=== PATIENT | female | born 1975 | race Caucasian/White ===

== ENCOUNTER 2020-10-25 20:16 | Emergency (ER) | payer OTHER, SELFPAY ==
--- NOTE | ~2020-10-25 | CT_ITS ---
EXAMINATION: CT abdomen pelvis wo con DATE: 10/25/2020 23:22 INDICATION: Left flank pain TECHNIQUE: Computed tomography (CT) of the abdomen and pelvis was performed without intravenous contr ast. Automated exposure control and iterative reconstruction technique were employed. The dose-length product was 545.01 mGy-cm. COMPARISON: None FINDINGS: Lung bases are clear. Heart size is normal. No pericardial or pleural effusion. Indeterminate 3.8 cm and 1.6 cm hypodense hepatic lesions. Gallbladder, spleen, pancreas and bilateral adrenal glands are normal. 3-4 mm obstructing stone at the distal left ureter located approximately 1 cm from the ureter ovesicular junction resulting in mild left hydroureteronephrosis. There are at least three, 1 mm nono bstructing stones at the right kidney. No right-sided ureteral stones or hydronephrosis. There are fe w sigmoid diverticula without adjacent inflammatory change to suggest diverticulitis. No bowel obstru ction. The appendix is not visualized. No pericecal inflammatory change to suggest acute appendicitis . Bladder, anteverted uterus and bilateral adnexa are unremarkable. No free intraperitoneal gas or fl uid. No pathologically enlarged abdominal or pelvic lymphadenopathy. Bones are unremarkable. IMPRESSION: 1. Bilateral nephrolithiasis with obstructing 3 to 4 mm distal left ureteral stone resulting in mild left hydroureteronephrosis. 2. A couple indeterminate hypodense hepatic lesions, the largest measuring up to 3.8 cm which are sta tistically most likely to represent hemangiomas. Differential includes focal nodular hyperplasia, bryant noma or less likely malignancy either primary or metastatic. Recommend further evaluation with noneme rgent pre and postcontrast MRI. Reviewed, dictated and finalized at location A. IMPRESSION: 1. Bilateral nephrolithiasis with obstructing 3 to 4 mm distal left ureteral st one resulting in mild left hydroureteronephrosis. 2. A couple indeterminate hypodense hepatic lesions, the largest measuring up t o 3.8 cm which are statistically most likely to represent hemangiomas. Differen tial includes focal nodular hyperplasia, adenoma or less likely malignancy eith er primary or metastatic. Recommend further evaluation with nonemergent pre and postcontrast MRI.
[2020-10-25 20:18] VITALS: BP 144/101; PULSE 100; RESP 18; TEMP 36.4; O2SAT 100
[2020-10-25 20:42] LABS: Alanine Aminotransferase 16 U/L (4-35); Albumin Level 4.7 g/dL (3.5-5.1); Alkaline Phosphatase 75 U/L (38-126); Anion Gap 9 mmol/L (8-16); Aspartate Amino Transferase 23 U/L (14-36); Bilirubin,Total 0.3 mg/dL (0.2-1.3); Blood Urea Nitrogen 14 mg/dL (7-17); Calcium 9.9 mg/dL (8.4-10.2); Carbon Dioxide 26 mmol/L (22-30); Chloride 103 mmol/L (98-107); Estimated CRCL calculation 60 ml/min; Estimated Glomerular Filt Rate > 60; Glucose 90 mg/dL (65-105); Lipase 102 U/L (23-300); Potassium 4.1 mmol/L (3.4-5.0); Sodium 138 mmol/L (137-145)
[2020-10-25 20:46] LABS: Add Urine Microscopic? YES; Appearance Urine Cloudy (Clear); Bilirubin Urine Negative (Negative); Blood Urine 2+ (Negative); Color Urine Yellow (Yellow); Glucose Urine UA Negative (Negative); Ketones Urine Negative (Negative); Leukocyte Esterase Ur Negative LEU/UL (Negative); Mucus Urine Rare /lpf; Nitrate Urine Negative (Negative); Protein Urine Negative (Negative); RBC Urine 51-75 /hpf (0-2); Specific Grav Ur 1.017 (1.001-1.035); Squamous Epithelial Cell Urine Few /hpf (Few); Urobilinogen Urine Negative mg/dL (<2.0)
[2020-10-25] MEDS: MORPHINE SULFATE (*CRX) 4 MG/ML INJ IV PUSH (22:55)
[2020-10-25] MEDS: ONDANSETRON INJ 4 MG/2 ML VIAL IV PUSH (22:55)
[2020-10-25] MEDS: SODIUM CHLORIDE 0.9% IV 1,000 ML 999 ML IV CONT (23:03)
[2020-10-25 23:26] VITALS: BP 145/85; PULSE 85; RESP 20; O2SAT 96
[2020-10-26 00:11] LABS: Basophils Absolute Auto 0.1 K/mm3 (0.0-0.1); Basophils Percent Auto 0.5 % (0.2-1.2); Eosinophils Absolute Auto 0.4 K/mm3 (0-0.3); Eosinophils Percent Auto 4.1 % (0-4.4); Hematocrit 36.3 % (37.0-47.0); Hemoglobin 12.1 g/dL (12.0-15.0); Immature Granulocyte Absolute 0.02 K/mm3 (0.00-0.031); Immature Granulocyte Percent A 0.2 % (0-0.5); Lymphocytes Absolute Auto 1.78 K/mm3 (0.9-3.2); Mean Corpuscular HGB Conc 33.3 g/dl (32-36); Mean Corpuscular Hemoglobin 28.6 pg (26-34); Mean Corpuscular Volume 85.8 fl (80-100); Monocytes Absolute Auto 0.8 K/mm3 (0.1-0.6); Neutrophils Absolute Auto 6.4 K/mm3 (1.3-6.7); Neutrophils Percent Auto 68.2 % (45.5-73.1); Platelet Count Result 240 k/mm3 (150-375); Red Blood Count 4.23 M/mm3 (4.2-5.4); White Blood Count 9.4 K/mm3 (4.5-10.0)
[2020-10-26 00:27] VITALS: BP 148/74; PULSE 84; RESP 20; O2SAT 97
--- NOTE | 2020-10-26 00:43 | ED.GENADULT ---
HPI - General Adult General Chief complaint: Abdominal Pain Stated complaint: lower abd pain Time Seen by Provider: 10/25/20 22:26 History of Present Illness HPI narrative: Patient is a 45-year-old female who presents the emergency department with chief complaint of flank pain and abdominal pain. The patient states she had sudden onset severe pain in the left flank. The patient states that sharp states is not improved by anything reports is not able to get comfortable in any position. Related Data Allergies Allergy/AdvReac Type Severity Reaction Status Date / Time Sulfa (Sulfonamide Allergy Severe Anaphylactic Verified 10/25/20 20:21 Antibiotics) Shock milk Allergy Mild Gas and Verified 10/25/20 20:21 Bloating Honey Bee Allergy Severe Anaphylactic Uncoded 10/25/20 20:21 Shock Wasp Allergy Severe Anaphylactic Uncoded 10/25/20 20:21 Shock Review of Systems Review of Systems: Narrative: A 10 system review of systems was completed on the patient and is negative except for what is stated in the HPI. Nursing and ancillary documentation was reviewed. [facility] Past Medical History Medical History Anaphylaxis Rotator cuff tendinitis Family History Family History Mother Carcinoma of colon, Onset Age: 53 Social History Social History Social History: Engaged Smoking status: Never smoker Tobacco type: cigarettes Second hand tobacco smoke exposure: No Smoking end date: 07/02/95 Alcohol intake: current Drinks per week: 2 Substance use: never Substance use type: does not use Gender identity (if verbalized by the patient): Female Exam Narrative: Exam Narrative: GENERAL: Well-appearing, well-nourished, and in moderate acute pain distress. HEAD: Normocephalic, atraumatic. EYES: PERRLA and EOMI. ENT: Nares clear, no rhinorrhea or epistaxis. Mucous membranes moist. NECK: Supple. CHEST: Clear to auscultation. No respiratory distress. HEART: Regular rate and rhythm. No murmur heard. Normal peripheral pulses. ABDOMEN: Soft, nontender, nondistended, normal active bowel sounds. EXTREMITIES: Normal range of motion. No edema. SKIN: Warm, dry, no rash. NEURO: No focal deficits. Alert and oriented x3. PSYCH: Normal mood and affect. Course Course Emergency Course: CT scan shows evidence of 4 mm stone Vital Signs Vital signs: Vital Signs Temperature 36.4 C 10/25/20 20:18 Pulse Rate 100 10/25/20 20:18 Respiratory Rate 18 10/25/20 20:18 Blood Pressure 144/101 H 10/25/20 20:18 Pulse Oximetry 100 10/25/20 20:18 Temperature 36.4 C 10/25/20 20:18 Pulse Rate 84 10/26/20 00:27 Respiratory Rate 20 10/26/20 00:27 Blood Pressure 148/74 H 10/26/20 00:27 Pulse Oximetry 97 10/26/20 00:27 Medical Decision Making Vital Signs Vital Signs: Vital Signs Temperature 36.4 C 10/25/20 20:18 Pulse Rate 100 10/25/20 20:18 Respiratory Rate 18 10/25/20 20:18 Blood Pressure 144/101 H 10/25/20 20:18 Pulse Oximetry 100 10/25/20 20:18 Temperature 36.4 C 10/25/20 20:18 Pulse Rate 84 10/26/20 00:27 Respiratory Rate 20 10/26/20 00:27 Blood Pressure 148/74 H 10/26/20 00:27 Pulse Oximetry 97 10/26/20 00:27 Lab Data Result diagrams: 10/26/20 00:03 10/25/20 20:27 Labs: Lab Results 10/25/20 10/25/20 10/26/20 Range/Units 20:27 20:32 00:03 WBC 9.4 (4.5-10.0) K/mm3 RBC 4.23 (4.2-5.4) M/mm3 Hgb 12.1 (12.0-15.0) g/dL Hct 36.3 L (37.0-47.0) % MCV 85.8 (80-100) fl MCH 28.6 (26-34) pg MCHC 33.3 (32-36) g/dl RDW 13.0 (11.5-14.5) % Plt Count 240 (150-375) k/mm3 MPV 10.0 (7.4-10.4) fl Immature Gran % (Auto) 0.2 (0-0.5) % Neut % (Auto) 68.2 (45.5-73.1) % Lymph
== END 2020-10-26 01:34 | disposition home or self-care (01) ==
PROVIDERS: Emergency Medicine; Emergency Provider Emergency Medicine; PCP Family Medicine
DX: N13.2 Hydronephrosis with renal and ureteral calculous obstruction (principal); K76.9 Liver disease, unspecified
CPT/HCPCS: 36415; 74176; 80053; 81001; 81025; 83690; 85025; 96360; 96361; 96374; 96375; 99284; J2270; J2405; J7030

== ENCOUNTER 2020-10-26 15:25 | Observation (INO) | payer OTHER, SELFPAY ==
--- NOTE | ~2020-10-26 | XR_ITS ---
EXAMINATION: XR retrograde pyelo w/stent LT DATE: 10/27/2020 14:39 INDICATION: Left ureteral stent placement TECHNIQUE: Fluoroscopic images from a left ureteral stent placement are submitted for review. 27 seco nds of fluoroscopy time. 30 fluoroscopic images. FINDINGS: There is a left double-J internal ureteral stent projecting in expected position, with proximal Demorest loop at the level of the renal pelvis and distal loop in the pelvis within the bladder lumen. IMPRESSION: 1. Left internal ureteral stent placement. Please refer to real-time procedural findings for detail s. Reviewed, dictated and finalized at location B. IMPRESSION: 1. Left internal ureteral stent placement. Please refer to real-time procedur al findings for details.
--- NOTE | ~2020-10-26 | XR_ITS ---
XR abdomen/kub 1V 10/28/2020 08:56 INDICATION: Renal stones TECHNIQUE: KUB COMPARISON: CT dated 10/25/2020 FINDINGS: Bowel gas pattern is normal. There is no evidence of free air, mass, organomegaly, ascites or obstruction. No abnormal calculi are seen. The bones appear intact. There is a left internal ur eteral stent in expected position. There are pelvic phleboliths. IMPRESSION: 1: No acute abdominal abnormality identified. Reviewed, dictated and finalized at location B.
[2020-10-26 15:33] VITALS: BP 145/90; PULSE 84; RESP 17; TEMP 36.3; O2SAT 100
--- NOTE | 2020-10-26 16:39 | ED.FEMALEGU ---
HPI - Female Genitourinary General Chief complaint: Urogenital-Female Stated complaint: flank pain Time Seen by Provider: 10/26/20 16:31 Source: patient and family Mode of arrival: ambulatory Limitations: no limitations History of Present Illness HPI Narrative: Patient is 45 years old white female presents with left flank and left lower abdominal pain started yesterday. Patient got discharged from our emergency room last night with a diagnosis of ureterolithiasis, left distal ureter, 3 to 4 mm. Patient woke up this morning and started having similar symptoms as yesterday, gradually getting worse associated with nausea and frequent vomiting. Patient reports no position is comfortable. Patient denies any fever or chills. Related Data Allergies Allergy/AdvReac Type Severity Reaction Status Date / Time bee venom protein (honey bee) Allergy Severe Anaphylactic Verified 10/26/20 17:45 Shock Sulfa (Sulfonamide Allergy Severe Anaphylactic Verified 10/26/20 16:25 Antibiotics) Shock milk Allergy Mild Gas and Verified 10/26/20 16:25 Bloating Honey Bee Allergy Severe Anaphylactic Uncoded 10/26/20 16:25 Shock Wasp Allergy Severe Anaphylactic Uncoded 10/26/20 16:25 Shock Review of Systems Review of Systems: Narrative: CONSTITUTIONAL: Denies fever, chills, or sweats. EYES: Denies visual changes, redness, or discharge. ENT: Denies rhinorrhea, congestion, sore throat, or otalgia. CARDIOVASCULAR: Denies chest pain, palpitations, or edema. RESPIRATORY: Denies cough or dyspnea. GASTROINTESTINAL: Denies abdominal pain, nausea, vomiting, or diarrhea. GENITOURINARY: Denies dysuria or hematuria. SKIN: Denies rash or itching. MUSCULOSKELETAL: Denies back pain, joint pain, or myalgia. NEUROLOGIC: Denies headache, numbness, or weakness. PSYCHIATRIC: Denies anxiety or depression. [facility] Past Medical History Medical History Anaphylaxis Rotator cuff tendinitis Family History Family History Mother Carcinoma of colon, Onset Age: 53 Social History Social History Social History: Engaged Smoking status: Never smoker Tobacco type: cigarettes Second hand tobacco smoke exposure: No Smoking end date: 07/02/95 Alcohol intake: current Drinks per week: 2 Substance use: never Substance use type: does not use Gender identity (if verbalized by the patient): Female Exam Narrative: Exam Narrative: General appearance: Well-developed, well-nourished, restless, in pain Skin: Normal color Chest and respiratory: Airway patent, no respiratory distress, no accessory muscle use Heart: Regular rate/rhythm Abdomen: Mild tenderness left lower quadrant and left flank area Vascular: Normal peripheral pulses, normal capillary refill. Musculoskeletal: Normal range of motion, nontender back Neurologic: Alert and oriented ?3, Course Course Emergency Course: Stable, improving Consultations Consultation #1: Dr. Real Admit patient to hospitalist, n.p.o. after midnight Date: 10/26/20 Time: 18:31 Vital Signs Vital signs: Vital Signs Temperature 36.3 C L 10/26/20 15:33 Pulse Rate 84 10/26/20 15:33 Respiratory Rate 17 10/26/20 15:33 Blood Pressure 145/90 H 10/26/20 15:33 Pulse Oximetry 100 10/26/20 15:33 Temperature 36.3 C L 10/26/20 15:33 Pulse Rate 76 10/26/20 17:54 Respiratory Rate 21 H 10/26/20 17:54 Blood Pressure 161/83 H 10/26/20 17:54 Pulse Oximetry 100 10/26/20 17:54 MDM - Female Genitourinary MDM Narrative Medical decision edy
[2020-10-26 17:54] VITALS: BP 161/83; PULSE 76; RESP 21; O2SAT 100
[2020-10-26] MEDS: HYDROmorphone HCL INJ (*CRX) 1 MG/ML SYR 0.5 MG IV PUSH (17:54)
[2020-10-26] MEDS: ONDANSETRON INJ 4 MG/2 ML VIAL IV PUSH (17:54)
[2020-10-26] MEDS: SODIUM CHLORIDE 0.9% IV 1,000 ML 999 ML IV CONT (17:54)
[2020-10-26] MEDS: KETOROLAC 30 MG/ML VIAL (*BKC) IV PUSH ×2 (18:14→21:05)
[2020-10-26 18:28] LABS: Basophils Absolute Auto 0.1 K/mm3 (0.0-0.1); Basophils Percent Auto 0.5 % (0.2-1.2); Eosinophils Percent Auto 0.2 % (0-4.4); Hematocrit 39.6 % (37.0-47.0); Hemoglobin 13.5 g/dL (12.0-15.0); Immature Granulocyte Absolute 0.05 K/mm3 (0.00-0.031); Immature Granulocyte Percent A 0.4 % (0-0.5); Lymphocytes Absolute Auto 0.58 K/mm3 (0.9-3.2); Lymphocytes Percent Auto 4.4 % (18.3-44.2); Mean Corpuscular HGB Conc 34.1 g/dl (32-36); Mean Corpuscular Hemoglobin 29.1 pg (26-34); Mean Corpuscular Volume 85.3 fl (80-100); Monocytes Absolute Auto 0.5 K/mm3 (0.1-0.6); Monocytes Percent Auto 3.6 % (2.6-8.5); Neutrophils Absolute Auto 12.1 K/mm3 (1.3-6.7); Neutrophils Percent Auto 90.9 % (45.5-73.1); Platelet Count Result 240 k/mm3 (150-375); Red Blood Count 4.64 M/mm3 (4.2-5.4); Red Cell Distribution Width 13.2 % (11.5-14.5); White Blood Count 13.3 K/mm3 (4.5-10.0)
[2020-10-26 18:35] VITALS: BP 137/73; PULSE 84; RESP 18; O2SAT 97
[2020-10-26 19:20] VITALS: BP 138/77; PULSE 100; RESP 16; O2SAT 100
[2020-10-26 19:30] VITALS: BP 150/92; PULSE 110; RESP 16; TEMP 36.3; O2SAT 98; BMI 29.2
--- NOTE | 2020-10-26 20:04 | ADMGEN ---
This patient, Adarsh Alcantar, was admitted to [facility] Surg Room 313-01. Patient/family oriented to hospital policies and general routines including ID bracelet, bed and alarms, visiting hours, pain management, procedures, bathroom and other care routines, personal items, smoking policy, room service/diet, and visiting hours. Information on how to activate the Rapid Response Team has been discussed. Patient/Family are encouraged to report perceived risks to care and to ask questions if they do not understand what they are told or what they should do.
[2020-10-26 20:27] LABS: Alanine Aminotransferase 14 U/L (4-35); Albumin Level 3.9 g/dL (3.5-5.1); Alkaline Phosphatase 69 U/L (38-126); Anion Gap 5 mmol/L (8-16); Aspartate Amino Transferase 23 U/L (14-36); Bilirubin,Total 0.4 mg/dL (0.2-1.3); Blood Urea Nitrogen 14 mg/dL (7-17); Calcium 8.5 mg/dL (8.4-10.2); Carbon Dioxide 24 mmol/L (22-30); Chloride 108 mmol/L (98-107); Estimated CRCL calculation 57 ml/min; Estimated Glomerular Filt Rate 59; Glucose 157 mg/dL (65-105); Sodium 137 mmol/L (137-145)
[2020-10-26] MEDS: SODIUM CHLORIDE 0.9% IV 1,000 ML 125 ML IV CONT (20:53)
[2020-10-27] VITALS (14 sets, daily range): BP systolic 120–148; BP diastolic 72–92; PULSE 70–98; RESP 12–18; TEMP 36.3–36.6; O2SAT 94–100
[2020-10-27] MEDS: HYDROmorphone HCL INJ (*CRX) 1 MG/ML SYR 0.5 MG IV PUSH ×2 (01:52→09:44)
[2020-10-27] MEDS: KETOROLAC 30 MG/ML VIAL (*BKC) IV PUSH ×3 (06:30→20:04)
--- NOTE | 2020-10-27 07:43 | PM.IMHP ---
H&P: HPI History of Present Illness Date/Time: 10/27/20 07:43 Chief Complaint: Left flank pain Narrative: This is a 45-year-old female with no significant past medical history that presented to the emergency room due to left flank pain with radiation on down to the groin area nausea and vomiting, patient had been seen in the day before in the emergency room she was found to have a left ureter stone 3-4 mm she was triaged in the emergency room and when she was comfortable she was sent home on medication patient returned later due to being unable to tolerate anything intractable nausea and vomiting and worsening pain. She denies any fevers rigors or chills no hematuria but dark urine, patient states that she has been in her usual state of health prior to these she has never had anything like this before. Preliminary workup was significant for CT of abdomen and pelvis with left ureter 3-4 mm stone. Review of Systems Review of Systems: Narrative: Patient presented to the emergency room due to left flank pain to with radiation to the left groin area Constitutional: Comments: No fevers no rigors no chills Eyes: Comments: No vision changes ENT: Comments: No earache no nose congestion no sore throat no dry mouth Cardiovascular: Comments: No chest pain no PND no orthopnea no leg swelling Respiratory: Comments: No shortness of breath no cough no sputum production Gastrointestinal: Comments: Nausea and vomiting Genitourinary: Comments: Left flank pain with radiation to the left groin Musculoskeletal: Comments: No joint or muscle pain Integumentary/Breasts: Comments: No rashes Neurologic: Comments: No sensorimotor deficit Endocrine: Comments: No heat or cold intolerance no polydipsia polyphasia polyuria Hematologic/Lymphatic: Comments: No lymphadenopathies PMFSH Past Medical History Medical History (Updated 10/27/20 @ 13:50 by Felipa Blankenship MD) Anaphylaxis Renal stones Rotator cuff tendinitis Family History Family History Mother Carcinoma of colon, Onset Age: 53 Father Myocardial infarction Pacemaker COPD (chronic obstructive pulmonary disease) Sibling Hypertension Cyst of kidney, acquired Social History Social History Social History: Engaged Smoking status: Former smoker Tobacco type: cigarettes Second hand tobacco smoke exposure: No Smoking end date: 07/02/95 Alcohol intake: current Drinks per week: 4 Substance use: never Substance use type: does not use Gender identity (if verbalized by the patient): Female Spiritual care concerns: No Meds Home Medications and Allergies Home Medications Medication Instructions Recorded Confirmed Type cetirizine [Zyrtec] 10 mg PO DAILY PRN 10/26/20 10/26/20 History fluticasone propionate [Flonase 2 spray INTRANASAL DAILY PRN 10/26/20 10/26/20 History Allergy Relief] hydrocodone-acetaminophen 1 tablet PO Q6H PRN 3 Days #12 10/26/20 10/26/20 Rx tablet ondansetron 4 mg PO Q8H PRN #10 tablet 10/26/20 10/26/20 Rx tamsulosin [Flomax] 0.4 mg PO DAILY #10 cap 10/26/20 10/26/20 Rx Allergies Allergy/AdvReac Type Severity Reaction Status Date / Time bee venom protein (honey bee) Allergy Severe Anaphylactic Verified 10/26/20 17:45 Shock Sulfa (Sulfonamide Allergy Severe Anaphylactic Verified 10/26/20 16:25 Antibiotics) Shock milk Allergy Mild Gas and Verified 10/26/20 16:25 Bloating Honey Bee Allergy Severe Anaphylactic Uncoded 10/26/20 16:25 Shock Wasp Allergy Severe Anaphylactic Uncoded 10/26/20 16:25 Shock Vital Signs Vital Signs - 24 hr 10/26/20 15:33 10/26/20 17:54 10/26/20 18:35 Temperature 97.4 F L Pulse Rate 84 76 84 Respiratory Rate 17 21 H 18 Blood Pressure 145/90 H 161/83 H 137/73 Pulse Oximetry 100 100 97 10/26/20 19:20 10/26/20 19:30 10/27/20 04:0
--- NOTE | 2020-10-27 12:07 | WPDURCON ---
Assessment and Plan Assessment and plan (1) Ureterolithiasis: Code(s): N20.1 - Calculus of ureter Status: Acute Assessment and Plan: Obtain Consent for Dr. Real: Cystoscopy, left ureteroscopy with stone extraction, possible left stent placement, left retrograde pyelogram, possible holmium laser. Patient will go to the OR around 5:30 for surgery. Keep NPO. (2) Bilateral renal stones: Code(s): N20.0 - Calculus of kidney Status: Acute Assessment and Plan: Obtain KUB for surgical planning. Urology Consult Note HPI Date Seen: 10/27/20 Requesting Physician: Felipa Blankenship MD Primary Care Provider: Ita Tejeda MD Consult Narrative Narrative: Adarsh Alcantar is a 45 year old female who initially presented to the ER late on 10/25/2020 for LLQ pain that radiated to the left flank, nausea, vomiting and dark urine. SHe was diagnosed with a 3-4mm distal left stone via CT scan abdomen/pelvis, which also revealed bilateral non obstructive stones. She was discharged home with pain medication and FLomax only to return the next evening with worsening symptoms. She was admitted for pain control, but is not tolerating the pain well on pain medication. She has not passed the stone and is straining her urine. She denies dysuria or gross hematuria and is afebrile. She doesn't have any history of previous stones or UTI's. Her UA did not appear to show infection but did have microhematuria present and some trace bacteria. Her WBC is slightly high at 13.3 and creatinine is normal at 1.00. Review of Systems Cardiovascular: Cardiovascular: Denies chest pain Respiratory: Respiratory: Reports no additional respiratory complaints Gastrointestinal: Gastrointestinal: Reports abdominal pain, Reports nausea and Reports vomiting Genitourinary: Genitourinary: Denies hematuria, Denies nocturia, Denies dysuria, Denies pelvic pain, Reports flank pain and Reports urinary urgency PMF Past Medical History Medical History Anaphylaxis Rotator cuff tendinitis Family History Family History Mother Carcinoma of colon, Onset Age: 53 Father Myocardial infarction Pacemaker COPD (chronic obstructive pulmonary disease) Sibling Hypertension Cyst of kidney, acquired Social History Social History Social History: Engaged Smoking status: Former smoker Tobacco type: cigarettes Second hand tobacco smoke exposure: No Smoking end date: 07/02/95 Alcohol intake: current Drinks per week: 4 Substance use: never Substance use type: does not use Gender identity (if verbalized by the patient): Female Spiritual care concerns: No Meds Home Medications and Allergies Home Medications Medication Instructions Recorded Confirmed Type cetirizine [Zyrtec] 10 mg PO DAILY PRN 10/26/20 10/26/20 History fluticasone propionate [Flonase 2 spray INTRANASAL DAILY PRN 10/26/20 10/26/20 History Allergy Relief] hydrocodone-acetaminophen 1 tablet PO Q6H PRN 3 Days #12 10/26/20 10/26/20 Rx tablet ondansetron 4 mg PO Q8H PRN #10 tablet 10/26/20 10/26/20 Rx tamsulosin [Flomax] 0.4 mg PO DAILY #10 cap 10/26/20 10/26/20 Rx Allergies Allergy/AdvReac Type Severity Reaction Status Date / Time bee venom protein (honey bee) Allergy Severe Anaphylactic Verified 10/26/20 17:45 Shock Sulfa (Sulfonamide Allergy Severe Anaphylactic Verified 10/26/20 16:25 Antibiotics) Shock milk Allergy Mild Gas and Verified 10/26/20 16:25 Bloating Honey Bee Allergy Severe Anaphylactic Uncoded 10/26/20 16:25 Shock Wasp Allergy Severe Anaphylactic Uncoded 10/26/20 16:25 Shock Vital Signs Vital Signs - 24 hr 10/26/20 15:33 10/26/20 17:54 10/26/20 18:35 Temperature 97.4 F L Pulse Rate 84 76 84 Respi
[2020-10-27] MEDS: SODIUM CHLORIDE 0.9% IV 1,000 ML 125 ML IV CONT (13:12)
--- NOTE | 2020-10-27 13:27 | WPDANESEPPF ---
Anes - Initial Pre Proc Eval Procedure: Operation Date: 10/27/20 16:30 Proposed Procedures p Cystoscopy,Left Ureteroscopy,Left Retrograde Pyelogram,Left Stone Extraction,Possible Holmium Laser,Possible Stent Placement - Dahiana Real MD Date/Time: 10/27/20 13:27 Surgeon: Felipa Blankenship MD Pre Op Diagnosis: Left ureterolithiasis Patient Data Age: 45 Gender: F Height: 1.57 m Weight: 72.7 kg Last Vital Signs Temp 36.3 C L 10/27/20 04:00 Pulse 98 10/27/20 04:00 Resp 16 10/27/20 04:00 BP 140/92 H 10/27/20 04:00 Pulse Ox 98 10/27/20 04:00 Allergies Allergy/AdvReac Type Severity Reaction Status Date / Time bee venom protein (honey bee) Allergy Severe Anaphylactic Verified 10/26/20 17:45 Shock Sulfa (Sulfonamide Allergy Severe Anaphylactic Verified 10/26/20 16:25 Antibiotics) Shock milk Allergy Mild Gas and Verified 10/26/20 16:25 Bloating Honey Bee Allergy Severe Anaphylactic Uncoded 10/26/20 16:25 Shock Wasp Allergy Severe Anaphylactic Uncoded 10/26/20 16:25 Shock Home Medications Medication Instructions Recorded Confirmed Type cetirizine [Zyrtec] 10 mg PO DAILY PRN 10/26/20 10/26/20 History fluticasone propionate [Flonase 2 spray INTRANASAL DAILY PRN 10/26/20 10/26/20 History Allergy Relief] hydrocodone-acetaminophen 1 tablet PO Q6H PRN 3 Days #12 10/26/20 10/26/20 Rx tablet ondansetron 4 mg PO Q8H PRN #10 tablet 10/26/20 10/26/20 Rx tamsulosin [Flomax] 0.4 mg PO DAILY #10 cap 10/26/20 10/26/20 Rx Laboratory Tests 10/26/20 10/26/20 18:22 20:10 WBC 13.3 K/mm3 H K/mm3 (4.5-10.0) RBC 4.64 M/mm3 M/mm3 (4.2-5.4) Hgb 13.5 g/dL g/dL (12.0-15.0) Hct 39.6 % % (37.0-47.0) MCV 85.3 fl fl (80-100) MCH 29.1 pg pg (26-34) MCHC 34.1 g/dl g/dl (32-36) RDW 13.2 % % (11.5-14.5) Plt Count 240 k/mm3 k/mm3 (150-375) MPV 10.0 fl fl (7.4-10.4) Immature Gran % (Auto) 0.4 % % (0-0.5) Neut % (Auto) 90.9 % H % (45.5-73.1) Lymph % (Auto) 4.4 % L % (18.3-44.2) [place] % (Auto) 3.6 % % (2.6-8.5) Eos % (Auto) 0.2 % % (0-4.4) Baso % (Auto) 0.5 % % (0.2-1.2) Lymph # (Auto) 0.58 K/mm3 L K/mm3 (0.9-3.2) [place] # (Auto) 0.5 K/mm3 K/mm3 (0.1-0.6) Eos # (Auto) 0.0 K/mm3 K/mm3 (0-0.3) Baso # (Auto) 0.1 K/mm3 K/mm3 (0.0-0.1) Abs Immat Gran (auto) 0.05 K/mm3 H K/mm3 (0.00-0.031) Absolute Neuts (auto) 12.1 K/mm3 H K/mm3 (1.3-6.7) Absolute Nucleated RBC 0.0 K/mm3 K/mm3 (0.0-0.012) Nucleated RBC % 0.0 % % (0.0-0.2) Sodium 137 mmol/L mmol/L (137-145) Potassium 4.0 mmol/L mmol/L (3.4-5.0) Chloride 108 mmol/L H mmol/L (98-107) Carbon Dioxide 24 mmol/L mmol/L (22-30) Anion Gap 5 mmol/L L mmol/L (8-16) BUN 14 mg/dL mg/dL (7-17) Creatinine 1.00 mg/dL mg/dL (0.7-1.0) Estim Creat Clear Calc 57 ml/min ml/min Estimated GFR 59 (59 - ) Glucose 157 mg/dL H mg/dL (65-105) Calcium 8.5 mg/dL mg/dL (8.4-10.2) Total Bilirubin 0.4 mg/dL mg/dL (0.2-1.3) AST 23 U/L U/L (14-36) ALT 14 U/L U/L (4-35) Alkaline Phosphatase 69 U/L U/L (38-126) Total Protein 7.0 g/dL g/dL (6.3-8.2) Albumin 3.9 g/dL g/dL (3.5-5.1) Patient hx anesthesia problems: other (last time she had anesthesia at a different facility after a uterine ablation she had to be given narcan. Unaware of how much or what she was given.) Family hx anesthesia problems: none REPLACED BY [facility] Past Medical History Medical History (Updated 10/27/20 @ 13:25 by Ayo Urias, DO) Anaphylaxis Renal stones Rotator cuff tendinitis Family History Family History Mother Carcinoma of colon, Onset Age: 53 Father Myocardial infarction
[2020-10-27] MEDS: LACTATED RINGERS 1,000 ML 30 ML IV CONT (13:40)
--- NOTE | 2020-10-27 13:50 | WPDHPUPDATE1 ---
History and Physical Update Update Date/Time: 10/27/20 13:50 History and Physical has been reviewed, including an updated exam of the patient. There are NO changes in the patient's condition. Risks, benefits, and alternatives have been discussed and questions answered. Patient agrees to proceed with procedure.
[2020-10-27] MEDS: ceFAZolin 2 GM/D5W 50 ML 2 GM/50 ML BAG IVPB (13:58)
[2020-10-27] MEDS: LIDOCAINE HCL 2% GEL UROJET 10 ML PKG MUCOUS MEM (14:38)
--- NOTE | 2020-10-27 14:42 | PM.PROC ---
Procedure Note - Detailed Date of procedure: 10/27/20 Pre-op diagnosis: Left ureterolithiasis Post-op diagnosis: same Procedure performed: Cystoscopy, left ureteroscopy, retrograde pyelogram, laser lithotripsy, stone extraction, stent placement Description of procedure: Informed consents obtained. Patient to the operating. She was given preoperative IV antibiotics. Images anesthesia. She was prepped and draped in normal sterile fashion. We inserted a 20 F cystoscope sheath with the bladder particularly no mucosal abnormalities. It Application Architect film showed a 4mm distal calcification. We then cannulated the left ureteral orifice with a wire and then dilated with a 10 coaxial dilator. Did appear that we pushed the stone proximally with the wire. We then inserted a semi rigid ureteral scope and inspected the distal half of the ureter did not identify the stone. We then advanced a flexible ureteroscope unable to pull the stone back down into the distal ureter, however the stone would not easily be pulled beyond the level of the UPJ where it was previously impacted. I therefore changed back to a semi rigid ureteral scope we placed a laser fiber and fragmented the stone into 2 pieces , we then grasped each piece and removed them to send a specimen. I then readvanced the flexible ureteroscope into the distal half of the ureter there are no residual stones. Retrograde pyelogram revealed mild hydronephrosis and no extravasation. Over wire placed a 6 F variable length stent with a curl in renal pelvis and curl in the bladder. Bladder was emptied. 10cc of lidocaine were instilled. Patient taken to PACU in stable condition Anesthesia: GLMA Surgeon: Dahiana Real MD Drains: No Packing: No Pathology: yes Complications: No immediate complications Condition: stable Disposition: PACU
[2020-10-27] MEDS: fentaNYL CITRATE INJ (*CRX) 100 MCG/2 ML VIAL 25 MCG IV PUSH (15:17)
--- NOTE | 2020-10-27 16:26 | PC.NURSE ---
pt to surgery , a/o x3
--- NOTE | 2020-10-27 16:27 | PC.NURSE ---
pt returned from surgery at 1600 , a/o x3 no distress, denies any pain, family at bedside.
[2020-10-28 04:00] VITALS: BP 143/89; PULSE 94; RESP 16; TEMP 36.2; O2SAT 96
[2020-10-28] MEDS: ACETAMINOPHEN 325 MG TABLET 650 MG PO (08:57)
--- NOTE | 2020-10-28 09:09 | WPDUROPN2 ---
Progress Note: A&P Assessment and Plan (1) Bilateral renal stones: Code(s): N20.0 - Calculus of kidney Status: Acute Assessment and Plan: Get a KUB for future surgical planning. No intervention today, ok to discharge home at any time. NO further evaluation needed. (2) Ureterolithiasis: Code(s): N20.1 - Calculus of ureter Status: Acute Assessment and Plan: Resolved, patient will follow up next week for stent removal in the office. Ok to start Levsin for stent irriation. Subjective Subjective Date/Time Seen: 10/28/20 09:09 POD #1 Cystoscopy, left ureteroscopy with stone extraction, left stent placement, left retrograde pyelogram, holmium laser. Patient doing much better this morning, her pain is improved. She notes some stent irritation with activity and urination and minimal blood in the urine. She is tolerating her diet well. Review of Systems Cardiovascular: Cardiovascular: Denies chest pain Respiratory: Respiratory: Reports no additional respiratory complaints Gastrointestinal: Gastrointestinal: Denies abdominal pain, Denies nausea and Denies vomiting Genitourinary: Genitourinary: Reports hematuria, Denies dysuria, Reports flank pain and Denies urinary urgency Exam Resp: Effort & Inspection: normal respiratory effort Cardio: Rate: regular rate GI: GI Palp: Yes Soft to palpation and No Tenderness to palpation present (GI) : General: Yes CVA tenderness on the left Extrem: General: no edema Objective Data Vital Signs Vital Signs: Vital Signs - 24 hr 10/27/20 13:58 10/27/20 14:00 10/27/20 14:43 Temperature 97.5 F L 97.8 F 97.4 F L Pulse Rate 84 91 78 Respiratory Rate 16 18 Blood Pressure 145/84 H 135/77 122/81 Pulse Oximetry 99 98 100 10/27/20 14:55 10/27/20 15:10 10/27/20 15:25 Temperature Pulse Rate 78 77 79 Respiratory Rate 12 12 16 Blood Pressure 126/78 120/76 121/75 Pulse Oximetry 98 97 94 10/27/20 15:40 10/27/20 16:00 10/27/20 16:15 Temperature Pulse Rate 76 80 78 Respiratory Rate 18 18 16 Blood Pressure 126/72 137/81 135/78 Pulse Oximetry 98 96 97 10/27/20 16:45 10/27/20 17:45 10/27/20 20:00 Temperature 97.6 F Pulse Rate 76 70 93 Respiratory Rate 16 18 16 Blood Pressure 134/78 130/74 148/84 H Pulse Oximetry 96 97 95 10/27/20 23:12 10/28/20 04:00 Temperature 97.1 F L Pulse Rate 94 Respiratory Rate 16 Blood Pressure 143/89 H Pulse Oximetry 95 96 Intake/Output Intake/Output: Intake & Output 10/25/20 10/26/20 10/27/20 10/28/20 23:59 23:59 23:59 23:59 Intake Total 1000 1520 300 Output Total 1950 1700 Balance 1000 -430 -1400 Meds/Results Medications: Active Medications Generic Name Dose Route Start Last Admin Trade Name Freq PRN Reason Stop Dose Admin Acetaminophen 650 mg 10/27/20 22:09 10/28/20 08:57 Acetaminophen 325 Mg Tablet PO 650 mg Q6H PRN Administration Mild Pain (1-3) or Fever Hydromorphone HCl 0.5 mg 10/26/20 18:22 10/27/20 09:44 Hydromorphone Hcl Inj (*Crx) 1 Mg/Ml Syr IV PUSH 0.5 mg Q4H PRN Administration Pain Rated 7-10 Ketorolac Tromethamine 30 mg 10/26/20 18:22 10/27/20 20:04 Ketorolac 30 Mg/Ml Vial (*Bkc) IV PUSH 10/31/20 18:23 30 mg Q6H PRN Administration Pain Rated 4-6 Ondansetron HCl 4 mg 10/26/20 18:22 Ondansetron Inj 4 Mg/2 Ml Vial IV PUSH Q4H PRN Nausea Radiology Results: ITS Impressions Retrograde Pyelogram 10/27/20 14:41 IMPRESSION: 1. Left internal ureteral stent placement. Please refer to real-time procedural findings for details. Abdomen X-Ray 10/28/20 09:01 IMPRESSION: 1: No acute abdominal abnormality identified.
--- NOTE | 2020-10-28 11:06 | PM.DS ---
DS: Admitting Diagnosis Admitting Diagnosis Admitting Diagnosis: (1) Colic, urethral, due to calculus: Code(s): N21.1 - Calculus in urethra Status: Acute Assessment and Plan: Patient will undergo cystoscopy with retrograde pyelogram likely stent placement as per urology Supportive care Pain managed Appreciate urology note (2) Nausea & vomiting: Code(s): R11.2 - Nausea with vomiting, unspecified Status: Acute Assessment and Plan: Likely secondary to above Supportive care NPO IV fluids Pain management DS: Discharge Diagnosis Discharge Diagnosis (1) Colic, urethral, due to calculus: Code(s): N21.1 - Calculus in urethra Status: Acute Assessment and Plan: Patient will undergo cystoscopy with retrograde pyelogram likely stent placement as per urology Supportive care Pain managed Appreciate urology note (2) Nausea & vomiting: Code(s): R11.2 - Nausea with vomiting, unspecified Status: Acute Assessment and Plan: Likely secondary to above Supportive care NPO IV fluids Pain management DS: Summary Hospital Course Reason for hospitalization: LEFT FLANK PAIN Hospital Course: THIS IS A 45-YEAR-OLD FEMALE WITH NO SIGNIFICANT PAST MEDICAL HISTORY SHE PRESENTED TO THE EMERGENCY ROOM DUE TO LEFT FLANK PAIN WITH RADIATION TO THE LEFT GROWING PATIENT ON CT IMAGING OF ABDOMEN AND PELVIS WAS FOUND TO HAVE A LEFT URETERAL STONE. PATIENT INITIALLY WAS SENT HOME BUT PATIENT RETURN DUE TO WORSENING PAIN NAUSEA AND VOMITING. PATIENT UNDERWENT SITUS COPY LEFT RETROGRADE URETEROSCOPY WITH URETER RETROGRADE PYELOGRAMS AND A STONE RETRIEVAL WITH STENT PLACEMENT AND LASER LITHOTRIPSY THERE WERE NO COMPLICATIONS PATIENT IS FEELING MUCH BETTER TODAY SHE HAS BEEN ABLE TO TOLERATE A DIET SHE WILL BE DISCHARGED HOME. CONSULTS OBTAINED: UROLOGY PROCEDURES: ABOVE STATED Status at Discharge Cognitive/behavioral status at discharge: AAOX3 Functional status at discharge: independent ambulation Time Spent with Patient Time attestation: Total time spent providing and/or coordinating discharge services: Exam Narrative: Exam Narrative: Patient is laying in bed in no acute distress well-appearing Const: General: comfortable, no acute distress, well developed, alert and awake Nutritional Appearance: average body habitus Orientation/consciousness: patient oriented x3 HENMT: Head: normal to inspection, normocephalic and atraumatic Ears: hearing grossly normal bilaterally Face and sinus: normal facial exam Eyes: General: appearance normal, both eyes and all related structures Pupils: Equal, round and reactive pupils present EOM: EOMs intact bilaterally Neck: Neck: full ROM, no lymphadenopathy and no JVD Thyroid: thyroid normal Lymphatic: no lymphadenopathy noted Resp: Effort & Inspection: normal respiratory effort and able to speak in complete sentences Auscultation: clear to auscultation bilaterally Cardio: Jugular venous distension: no JVD Rate: regular rate Rhythm: regular rhythm Heart sounds: S1 normal heart sound present and S2 normal heart sound present : General: Yes CVA tenderness on the left and Yes deferred Back/Spine/Pelvis: Back: CVA tenderness Skin: General skin exam: normal color Lesions: no lesions Rashes: no rashes Wounds: no wounds Neuro: General: patient oriented x3 and CN's II-XI intact bilaterally Cranial nerves: Yes CN's II-XII intact bilaterally and Yes Equal, round and reactive pupils present Cognition (Neuro): normal cognition Speech: normal speech Gait exam (Neuro): Normal gait present Motor exam (neuro): 5/5 motor strength present throughout Extrem: General: normal to inspection, full ROM, no joint enlargement and no pedal edema DS: Data Data Completed and Pending Completed studies during hospitalization: EXAMINATION: CT abdomen pelvis wo con DATE: 10/25/2020 23:22 INDICATION: Left flank pain TECHNIQUE: Computed marilyn
== END 2020-10-28 11:50 | disposition home or self-care (01) ==
LOC: ANHED 18:31 → ANH3MEDSUR 18:47
PROVIDERS: Urology; Admitting Provider Internal Medicine; Emergency Provider Emergency Medicine; PCP Family Medicine; Visit Provider Internal Medicine
PROC: (CPT 52352; principal; 2020-10-27 16:30)
DX: N21.1 Calculus in urethra (principal); N20.2 Calculus of kidney with calculus of ureter; R11.2 Nausea with vomiting, unspecified; Z87.891 Personal history of nicotine dependence
CPT/HCPCS: 52356; 36415; 74018; 74420; 80053; 81025; 82365; 85025; 88300; 96361; 96374; 96375; 96376; 99285; A9270; C1769; C2617; G0378; J0131; J0690; J1100; J1170; J1885; J2250; J2405; J2704; J3010; J7030; J7120; Q9966

== ENCOUNTER 2020-11-30 13:34 | Outpatient (CLI) | payer OTHER, SELFPAY ==
--- NOTE | ~2020-11-30 | XR_ITS ---
XR abdomen/kub 1V DATE: 11/30/2020 13:54 INDICATION: Left ureteral stone. History of lithotripsy. TECHNIQUE: AP projection, 2 views COMPARISON: 10/28/2020 KUB 10/27/2020 retrograde pyelogram 10/25/[address] abdomen pelvis FINDINGS: Interval resolution of calcified calculus of distal left ureter since 10/27/2020. Interval removal of left internal urinary stent since 10/28/2020. No evidence of bowel obstruction. No visceromegaly is evident. Included skeletal structures are unrem arkable. IMPRESSION: Resolution of distal left ureteral calcified calculus and removal of left internal urinar y stent since 10/27/2020 and 10/28/2020. Reviewed, dictated and finalized at [facility]. Reviewed, dictated and finalized at [facility]. IMPRESSION: Resolution of distal left ureteral calcified calculus and removal o f left internal urinary stent since 10/27/2020 and 10/28/2020.
== END 2020-11-30 13:35 | disposition home or self-care (01) ==
PROVIDERS: PCP Family Medicine; Visit Provider Urology
DX: N20.1 Calculus of ureter (principal)
CPT/HCPCS: 74018

== ENCOUNTER 2021-02-24 20:21 | Emergency (ER) | payer OTHER, SELFPAY ==
[2021-02-24 20:26] VITALS: BP 169/100; PULSE 105; RESP 16; TEMP 37.2; O2SAT 98
[2021-02-24 20:47] VITALS: BP 155/95; PULSE 91; RESP 16; TEMP 36.6; O2SAT 96
[2021-02-24 21:36] LABS: Basophils Absolute Auto 0.1 K/mm3 (0.0-0.1); Basophils Percent Auto 0.8 % (0.2-1.2); Eosinophils Absolute Auto 0.4 K/mm3 (0-0.3); Eosinophils Percent Auto 4.4 % (0-4.4); Hematocrit 41.8 % (37.0-47.0); Hemoglobin 14.2 g/dL (12.0-15.0); Immature Granulocyte Absolute 0.02 K/mm3 (0.00-0.031); Immature Granulocyte Percent A 0.2 % (0-0.5); Lymphocytes Absolute Auto 1.91 K/mm3 (0.9-3.2); Lymphocytes Percent Auto 21.2 % (18.3-44.2); Mean Corpuscular Volume 85.3 fl (80-100); Mean Platelet Volume 9.8 fl (7.4-10.4); Monocytes Absolute Auto 0.7 K/mm3 (0.1-0.6); Monocytes Percent Auto 7.2 % (2.6-8.5); Neutrophils Percent Auto 66.2 % (45.5-73.1); Platelet Count Result 290 k/mm3 (150-375); Red Cell Distribution Width 13.1 % (11.5-14.5)
[2021-02-24 21:47] LABS: Alanine Aminotransferase 18 U/L (4-35); Albumin Level 4.4 g/dL (3.5-5.1); Alkaline Phosphatase 73 U/L (38-126); Anion Gap 11 mmol/L (8-16); Aspartate Amino Transferase 22 U/L (14-36); Bilirubin,Total 0.3 mg/dL (0.2-1.3); Blood Urea Nitrogen 12 mg/dL (7-17); Calcium 9.6 mg/dL (8.4-10.2); Carbon Dioxide 24 mmol/L (22-30); Chloride 105 mmol/L (98-107); Estimated CRCL calculation 61 ml/min; Estimated Glomerular Filt Rate > 60; Glucose 95 mg/dL (65-110); Potassium 3.6 mmol/L (3.4-5.0); Sodium 140 mmol/L (137-145)
--- NOTE | 2021-02-24 22:41 | ED.ALLEREA ---
HPI - Allergic Reaction General Chief complaint: Skin/Abscess/Foreign Body Stated complaint: spider bite Time Seen by Provider: 02/24/21 21:12 Source: patient Mode of arrival: ambulatory Limitations: no limitations History of Present Illness HPI narrative: Patient is a 45-year-old female complaining of rash on the left breast and now it spread throughout her entire chest and upper extremities started when she woke up this morning and now worse, possible insect bite in her left breast. 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 Patient states that she is itching all over and feels like her tongue is a little heavy. Denies any lip or throat swelling. 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 Related Data Home Medications Medication Instructions Recorded Confirmed cetirizine [Zyrtec] 10 mg PO DAILY PRN 10/26/20 01/13/21 fluticasone propionate [Flonase 2 spray INTRANASAL DAILY PRN 10/26/20 01/13/21 Allergy Relief] Allergies Allergy/AdvReac Type Severity Reaction Status Date / Time bee venom protein (honey bee) Allergy Severe Anaphylactic Verified 02/24/21 20:55 Shock Sulfa (Sulfonamide Allergy Severe Anaphylactic Verified 02/24/21 20:55 Antibiotics) Shock Honey Bee Allergy Severe Anaphylactic Uncoded 02/24/21 20:55 Shock Wasp Allergy Severe Anaphylactic Uncoded 02/24/21 20:55 Shock Review of Systems Review of Systems: All systems reviewed & are unremarkable except as noted in HPI and below Constitutional: Constitutional: Denies body ache(s), Denies chills, Denies excessive sweating, Denies fatigue, Denies fever(s), Denies headache(s), Denies lethargy, Denies malaise, Denies weakness and Denies weight loss Eyes: Eyes: Denies blurry vision, Denies change in vision and Denies loss of vision ENT: Denies dizziness, Denies ear discharge, Denies headache(s), Denies lip swelling, Denies epistaxis, Denies nasal congestion, Denies neck pain, Denies throat swelling and Denies tongue swelling Cardiovascular: Cardiovascular: Denies chest pain, Denies chest pain at rest, Denies chest pain with activity, Denies diaphoresis, Denies rapid heart rate, Denies edema, Denies irregular heart rhythm, Denies lightheadedness, Denies palpitations, Denies dyspnea and Denies dyspnea on exertion Respiratory: Respiratory: Denies chest congestion, Denies cough, Denies hemoptysis, Denies dyspnea and Denies dyspnea on exertion Gastrointestinal: Gastrointestinal: Denies abdominal pain, Denies melena, Denies hematochezia, Denies diarrhea, Denies nausea, Denies vomiting and Denies hematemesis Musculoskeletal: Musculoskeletal: Denies abnormal gait, Denies deformity, Denies joint swelling, Denies limited range of motion, Denies neck pain and Denies numbness Neurologic: Denies Abnormal speech present, Denies abnormal gait, Denies confusion, Denies dizziness, Denies headache(s), Denies focal weakness, Denies loss of vision, Denies numbness, Denies Other visual disturbances, Denies Sensory deficit (Neuro) and Denies weakness Psychiatric: Psychiatric: Denies confusion, Denies depression, Denies auditory hallucinations, Denies homicidal ideation and Denies suicidal ideation Endocrine: Endocrine: Denies cold intolerance, Denies excessive sweating, Denies fatigue, Denies heat intolerance and Denies palpitations Hematologic/Lymphatic: Hematologic/Lymphatic: Denies easy bleeding and Denies easy bruising Allergic/Immunologic: Allergic/Immunologic: Denies lip swelling, Denies throat swelling and Denies tongue swelling PMFSH Past Medical History Medical History Anaphylaxis Personal history of COVID-19 Renal stones Rotator cuff tendinitis Family History Family History Mother Carcinoma of colon, Onset Age: 53 Cancer Father Myocardial infarction Pacemaker COPD (chronic obstructive pulmonary disease)
[2021-02-24] MEDS: diphenhydrAMINE HCl CAP 25 MG CAPSULE 50 MG PO (22:53)
[2021-02-24] MEDS: FAMOTIDINE 20 MG TABLET 40 MG PO (22:53)
[2021-02-24] MEDS: methylPREDNISolone SOD SUCC 125 MG VIAL IM (22:56)
[2021-02-24 23:08] VITALS: BP 142/97; PULSE 89; RESP 16; O2SAT 100
== END 2021-02-24 23:33 | disposition home or self-care (01) ==
PROVIDERS: Emergency Provider Emergency Medicine; PCP Family Medicine
DX: L50.0 Allergic urticaria (principal); Z86.16 Personal history of COVID-19; Z87.442 Personal history of urinary calculi; Z87.891 Personal history of nicotine dependence
CPT/HCPCS: 36415; 80053; 85025; 96372; 99283; A9270; J2930

== ENCOUNTER → 2021-12-23 13:45 | Outpatient (CLI) | payer OTHER, SELFPAY ==
--- NOTE | ~2021-12-23 | XR_ITS ---
EXAMINATION: XR abdomen/kub 1V INDICATION: Right renal stone TECHNIQUE: Supine views of the abdomen were obtained on 2 radiographs. COMPARISON: 12/19/2020 FINDINGS: No urolithiasis is identified. The bowel gas pattern is normal. The visualized osseous stru ctures are unremarkable. IMPRESSION: 1. No urolithiasis identified. Reviewed, dictated and finalized at [facility].
--- NOTE | ~2021-12-23 | US_ITS ---
EXAMINATION: US retroperitoneal comp DATE: 12/23/2021 14:04 INDICATION: Renal stones TECHNIQUE: Multiple ultrasound grayscale images of the kidneys were obtained. COMPARISON: None. FINDINGS: The right kidney measures 9.2 x 4.6 x 4.6 cm. The left kidney measures 9.1 x 4.3 x 5.2 cm. The kidney s demonstrate normal echogenicity. There is no hydronephrosis in either kidney. No stones identified . The bladder is normal. IMPRESSION: 1. Normal kidneys without hydronephrosis. Reviewed, dictated and finalized at [facility].
== END ==
PROVIDERS: PCP Nurse Practitioner Adult Health; Visit Provider Nurse Practitioner Adult Health
DX: N20.0 Calculus of kidney (principal)
CPT/HCPCS: 74018; 76770

== ENCOUNTER → 2023-02-20 13:49 | Outpatient (CLI) | payer OTHER, SELFPAY ==
--- NOTE | ~2023-02-20 | US_ITS ---
US soft tissue chest 02/20/2023 14:08 Indication: Palpable right lateral chest wall mass Procedure: High-resolution Limited ultrasound of the right lateral chest wall soft tissues Comparison: No prior studies for comparison. Findings: An area of palpable concern there is an oval parallel oriented circumscribed hypoechoic mas s with horizontal internal striations measuring 3.9 x 3.8 x 1.5 cm. There is minimal internal vascula rity. Next posterior attenuation. Impression: 1: Oval 3.9 cm right lateral chest wall mass corresponding to the area of palpable concern. 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 Consider follow-up ultrasound in 6-12 months to assess stability as clinically indicated. Reviewed, dictated and finalized at [facility]. Impression: 1: Oval 3.9 cm right lateral chest wall mass corresponding to the area of palpa ble concern. Sonographically characteristics are most compatible with benign li demetrice. Consider follow-up ultrasound in 6-12 months to assess stability as clini zohaib indicated.
== END ==
PROVIDERS: PCP Family Medicine; Visit Provider Family Medicine
DX: R22.2 Localized swelling, mass and lump, trunk (principal)
CPT/HCPCS: 76604